=== PATIENT | male | born 2000 | race Caucasian/White ===

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

== ENCOUNTER → 2021-01-14 | Outpatient (REF) | payer OTHER ==
[~2021-01-14] MED LIST changes: +AMOX500C PO; +CIPR7.5D5 OTIC; +MONT10TA10 PO; -MONT5TAB2 PO; +OMEP-218
[2021-01-14 19:25] LABS: BASO % 0.7 % (0.0-1.0); EOS # 0.2 10^3/uL (0.0-0.5); EOS % 2.5 % (0.0-3.0); HEMATOCRIT 46.5 % (42.0-52.0); LYMPH # 1.7 10^3/uL (1.5-5.0); MEAN CORPUSCULAR HEMOGLOBIN 27.8 pg (27.0-33.0); MEAN CORPUSCULAR HGB CONC 32.3 g/dl (32.0-36.5); MEAN CORPUSCULAR VOLUME 86.1 fl (80.0-96.0); MONO # 0.5 10^3/uL (0.0-0.8); MONO % 8.1 % (2.0-8.0); NEUTROPHILS # 3.5 10^3/uL (1.5-8.5); NEUTROPHILS % 59.4 % (36.0-66.0); PLATELET COUNT, AUTOMATED 230 10^3/uL (150-450); WHITE BLOOD COUNT 5.9 10^3/uL (4.0-10.0)
[2021-01-14 20:11] LABS: ALBUMIN 4.3 GM/DL (3.2-5.2); ALT/SGPT 52 U/L (12-78); BILIRUBIN,TOTAL 0.3 MG/DL (0.2-1.0); BLOOD UREA NITROGEN 10 MG/DL (7-18); CALCIUM LEVEL 9.6 MG/DL (8.5-10.1); CARBON DIOXIDE LEVEL 29 MEQ/L (21-32); CHLORIDE LEVEL 105 MEQ/L (98-107); GLUCOSE, FASTING 97 MG/DL (70-100); POTASSIUM SERUM 4.2 MEQ/L (3.5-5.1); SODIUM LEVEL 138 MEQ/L (136-145); TOTAL PROTEIN 7.8 GM/DL (6.4-8.2)
== END ==
LOC: M SFHCADAM 15:47
PROVIDERS: ATTEND Physician Assistant Medical
DX: F41.0 Panic disorder [episodic paroxysmal anxiety] (principal); F41.1 Generalized anxiety disorder

== ENCOUNTER → 2021-03-21 | Outpatient (CLI) | payer OTHER ==
[~2021-03-21] MED LIST changes: +CITA20TA6 PO; -OMEP-218; +OMEP-218 PO
== END ==
LOC: M LABSMTC 10:58
PROVIDERS: ATTEND Anesthesiology
DX: Z01.812 Encounter for preprocedural laboratory examination (principal); Z20.822 Contact with and (suspected) exposure to COVID-19

== ENCOUNTER 2021-03-26 09:32 | Day surgery (SDC) | payer OTHER ==
[~2021-03-26] VITALS: Ht 182.9 cm; Wt 141.9 kg
[~2021-03-26 09:32] MED LIST changes: +LR 1,000 ML IV ONE; +dexameTHASONE 4 MG/ML 1ML VIAL (J1100 PER 1MG) IV ONE
[2021-03-26] MEDS ORDERED: ONDANSETRON 4MG/2ML VIAL As Ordered ONE (10:50)
[2021-03-26] MEDS ORDERED: LIDOCAINE 2% 100MG/5ML SDV (FOR ANES.) As Ordered ONE (10:50)
[2021-03-26] MEDS ORDERED: propofoL 200 MG/20 ML VIAL As Ordered ONE (10:50)
[2021-03-26] MEDS ORDERED: fentaNYL 100 MCG/2 ML INJECTION (J3010) As Ordered ONE (10:53)
[2021-03-26] MEDS ORDERED: MIDAZOLAM INJ 2MG/2ML VIAL (J2250 PER 1MG) As Ordered ONE (10:53)
[2021-03-26] MEDS ORDERED: ROCURONIUM BROMIDE 50 MG/5 ML VIAL As Ordered ONE (11:09)
[2021-03-26] MEDS ORDERED: dexameTHASONE 4 MG/ML 1ML VIAL (J1100 PER 1MG) As Ordered ONE (11:25)
[2021-03-26] MEDS ORDERED: LIDOCAINE W/EPINEPHRINE 1% 20ML VIAL As Ordered ONE (11:30)
[2021-03-26] MEDS ORDERED: ACETAMINOPHEN 1000MG 100ML IV BTL (OFIRMEV) (J0131 PER 10MG) As Ordered ONE (12:05)
[2021-03-26] MEDS ORDERED: SUGAMMADEX SODIUM 500 MG/5 ML VIAL (BRIDION) As Ordered ONE (12:06)
[2021-03-26] MEDS ORDERED: ONDANSETRON 4MG/2ML VIAL IV PRN (13:05)
[2021-03-26] MEDS ORDERED: fentaNYL 100 MCG/2 ML INJECTION (J3010) IV PRN (13:05)
[2021-03-26] MEDS ORDERED: oxyCODONE 5MG TAB PO PRN (13:05)
[2021-03-26] MEDS ORDERED: LR 1,000 ML IV SCH ×2 (13:05)
[2021-03-26 14:00] VITALS: BP 130/68
--- NOTE | 2021-04-09 13:16 | RO ---
OPERATIVE NOTE DATE OF OPERATION: 03/26/2021 PREOPERATIVE DIAGNOSIS: Left lower lip mucocele. POSTOPERATIVE DIAGNOSIS: Left lower lip mucocele. PROCEDURE PERFORMED: Excision of the left lower lip mucocele. SURGEON: Dakota Banuelos MD. 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 CLINICAL PREAMBLE: This 20-year-old man presented to the office with history of mucocele of the right lower lip. Physical examination confirmed presence of the mucocele over the left lower lip. Management options including excision of the left lower lip mucocele have been discussed. The patient understands and consented to procedure. OR NARRATION: Patient was identified in preop holding and brought to the operating room in stable condition. In the supine position on the operating table, patient received general anesthesia followed by orotracheal intubation without incident. Patient was prepped and draped in the usual sterile fashion for the procedure. The left lower lip was everted to allow visualization of the mucocele on the inner aspect of the left lower lip. 1% lidocaine with 1:100,000 epinephrine was used to infiltrate the margin around the mucocele. Incision was made above the mucocele, and the capsule surrounding the mucocele was carefully identified and dissected in order to excise the entire mucocele en bloc. The incision was then closed using 3-0 chromic. At the end of the procedure, sponge and instrument counts were correct. No complications encountered. Estimated blood loss was less than 1 mL. General anesthesia was reversed, and patient was awakened and taken to the recovery room in stable condition.
== END 2021-03-26 14:25 | disposition home or self-care (01) ==
LOC: M SDC 09:32
PROVIDERS: ATTEND Otolaryngology
DX: K13.0 Diseases of lips (principal); J45.909 Unspecified asthma, uncomplicated; K21.9 Gastro-esophageal reflux disease without esophagitis; Z79.899 Other long term (current) drug therapy; F12.10 Cannabis abuse, uncomplicated
CPT/HCPCS: 11440; 88305; J0131; J1100; J2250; J2405; J3010; U0002

== ENCOUNTER 2021-12-06 23:12 | Emergency (ER) | payer OTHER ==
[~2021-12-06] VITALS: Ht 182.9 cm; Wt 127.3 kg
[~2021-12-06 23:12] MED LIST changes: -LR 1,000 ML IV ONE; -MONT10TA10 PO; +MONT10TA97 PO; +OMEP-173 PO; -OMEP-218 PO; -dexameTHASONE 4 MG/ML 1ML VIAL (J1100 PER 1MG) IV ONE
[2021-12-07] MEDS ORDERED: ACETAMINOPHEN 500 MG TAB PO ONE (07:25)
[2021-12-07] MEDS ORDERED: CEPHALEXIN SUSP POWDER 250MG/5ML BTL 100ML PO ONE (07:25)
[2021-12-07] MEDS ORDERED: CEPH500C PO (07:25)
[2021-12-07] MEDS ORDERED: CEPHALEXIN 500 MG CAP PO ONE (07:30)
[2021-12-07 07:35] VITALS: BP 144/74
[2021-12-10] MEDS ORDERED: SULF1TAB23 PO (07:45)
== END 2021-12-07 07:39 | disposition home or self-care (01) ==
LOC: M ED 23:12
DX: L03.311 Cellulitis of abdominal wall (principal); K21.9 Gastro-esophageal reflux disease without esophagitis; F17.290 Nicotine dependence, other tobacco product, uncomplicated; Z79.899 Other long term (current) drug therapy

== ENCOUNTER 2023-06-14 11:04 | Emergency (ER) | payer OTHER ==
[~2023-06-14 11:04] MED LIST changes: +CEPH500C PO; -DULE100A IN; +MOME13HF8 IN; +SULF1TAB23 PO
[2023-06-14] MEDS ORDERED: IBUP-1114 PO (11:21)
[2023-06-14] MEDS: KETOROLAC 30 MG/ML 1ML VIAL IM ONE (12:58)
[2023-06-14 13:07] VITALS: BP 140/71; TEMP 96.9; O2SAT 99
== END 2023-06-14 13:30 | disposition home or self-care (01) ==
LOC: M ED 11:04
DX: M76.11 Psoas tendinitis, right hip (principal); J45.909 Unspecified asthma, uncomplicated; K21.9 Gastro-esophageal reflux disease without esophagitis; F17.200 Nicotine dependence, unspecified, uncomplicated; F12.10 Cannabis abuse, uncomplicated; F10.10 Alcohol abuse, uncomplicated; Z79.83 Long term (current) use of bisphosphonates; Z79.1 Long term (current) use of non-steroidal anti-inflammatories (NSAID)
CPT/HCPCS: 73502; 73552; 96372; 99283; J1885

== ENCOUNTER → 2023-11-22 | Outpatient (CLI) | payer OTHER ==
[~2023-11-22] MED LIST changes: +IBUP-1114 PO
== END ==
LOC: M ADAMS 09:08
PROVIDERS: ATTEND Physician Assistant Medical
DX: M25.511 Pain in right shoulder (principal)

== ENCOUNTER 2023-12-23 06:32 | Day surgery (SDC) | payer OTHER ==
[~2023-12-23] VITALS: Ht 182.9 cm; Wt 104.2 kg
[~2023-12-23 06:32] MED LIST changes: +THERTAB52 PO
[2023-12-23] MEDS ORDERED: fentaNYL 100 MCG/2 ML INJECTION As Ordered ONE (07:12)
[2023-12-23] MEDS ORDERED: LIDOCAINE 2% INJ 100 MG/5 ML SYRINGE As Ordered ONE (07:12)
[2023-12-23] MEDS ORDERED: propofoL 200 MG/20 ML VIAL As Ordered ONE (07:12)
[2023-12-23] MEDS ORDERED: ROCURONIUM BROMIDE 50MG/5ML VIAL As Ordered ONE (07:12)
[2023-12-23] MEDS ORDERED: MIDAZOLAM INJ 2MG/2ML VIAL As Ordered ONE (07:14)
[2023-12-23] MEDS: LR 1,000 ML IV SCH (07:15)
[2023-12-23] MEDS ORDERED: ONDANSETRON 4MG 2ML VIAL As Ordered ONE (07:19)
[2023-12-23] MEDS ORDERED: ACETAMINOPHEN 1000MG 100ML IV BAG As Ordered ONE (07:19)
[2023-12-23] MEDS ORDERED: KETOROLAC 60MG 2ML VIAL As Ordered ONE (08:19)
[2023-12-23] MEDS ORDERED: oxyCODONE 5MG TAB PO PRN (08:40)
[2023-12-23] MEDS ORDERED: ONDANSETRON 4MG 2ML VIAL IV PRN (08:40)
[2023-12-23] MEDS ORDERED: fentaNYL 100 MCG/2 ML INJECTION IV PRN (08:40)
[2023-12-23] MEDS ORDERED: NORCO, ANEXSIA 5/325MG TABLET (HYDROcodone/ACETAMINOPHEN) PO PRN (09:00)
[2023-12-23 12:00] VITALS: BP 135/65; TEMP 97.8; O2SAT 100
== END 2023-12-23 12:47 | disposition home or self-care (01) ==
LOC: M SDC 06:32
PROVIDERS: ATTEND Surgery
DX: L05.91 Pilonidal cyst without abscess (principal); K21.9 Gastro-esophageal reflux disease without esophagitis; J45.909 Unspecified asthma, uncomplicated; Z79.899 Other long term (current) drug therapy; Z88.8 Allergy status to other drugs, medicaments and biological substances
CPT/HCPCS: 11770; 88304; J0131; J1100; J1885; J2250; J2405; J3010